=== PATIENT | male | born 1985 | race Caucasian/White ===

== ENCOUNTER 2019-04-28 20:14 | Emergency (ER) | payer SELFPAY ==
[~2019-04-28] VITALS: Ht 180.3 cm; Wt 70.3 kg
--- NOTE | 2019-04-28 20:22 | Emergency Room Report ---
History of Present Illness General Chief Complaint: medical clearance Source: Patient Present Illness HPI Patient is a 33-year-old male brought in by [facility] department for medical clearance. Patient reportedly had been arrested and had [employer] stuck with a needle that had been used by the patient. Patient consented for blood draw. He denies any current complaints. Allergies: Coded Allergies: No Known Allergies (Unverified , 04/28/19) Patient History Past Medical History: see triage record Reviewed Nursing Documentation: PMH: Agreed; PSxH: Agreed Review of Systems All Other Systems: negative except mentioned in HPI Physical Exam General Appearance: well appearing, no apparent distress, alert, GCS 15, non- toxic Head: normocephalic, atraumatic ENT: hearing grossly normal, normal voice Neck: full range of motion, supple Respiratory: no respiratory distress, speaking full sentences Cardiovascular #1: normal inspection Musculoskeletal: no calf tenderness Neurologic: normal gait Psychiatric: mood/affect normal Skin: no rash Medical Decision Making Diagnostic Impression: Primary Impression: Medical clearance for incarceration ER Course Patient present for medical clearance. baseline labs were drawn to [facility] for possible hepatitis or HIV. Patient was noted to be HIV negative. Patient was informed of these results. Patient is medically cleared for booking. He was discharged with [facility] custody.Patient was advised to follow-up with his primary care physician for recheck. He is to return if there is any symptoms that develop. Labs Test 04/28/19 20:39 HIV (1&2) Antibody Rapid Negative (NEGATIVE) Status: improved Disposition: HOME, SELF-CARE Condition: Stable Rober Leigh MD Apr 28, 2019 20:22
[2019-04-28 20:30] VITALS: BP 117/81
--- NOTE | 2019-04-28 20:30 | NUR ---
ED Nurse Note: Pt brought in to ER by [facility] for medical clearance. Per [facility], pt is being checked for blood diseases. No stated medical hx. Alert and oriented, verbally responsive. Breathing even and unlabored. No SOB. Afebrile. VSS. Pt is under custody.
--- NOTE | 2019-04-28 20:40 | NUR ---
ED Nurse Note: Blood sent to lab.
[2019-04-28 21:16] VITALS: BP 117/81
--- NOTE | 2019-04-28 21:16 | NUR ---
ED Nurse Note: Pt cleared by ERMD for discharge. DC instructions was given and explained to pt and verbalized understanding of teachings. All medical deviecs such as ID band removed. Pt is AAO x4, ambulatory and left with all personal belongings. Patient is under custody and is accompanied by [employer] officers.
== END 2019-04-28 21:16 | disposition home or self-care (01) ==
LOC: EMR 20:24
DX: T14.8XXA Other injury of unspecified body region, initial encounter (principal); W46.0XXA Contact with hypodermic needle, initial encounter; Y92.9 Unspecified place or not applicable; Z20.9 Contact with and (suspected) exposure to unspecified communicable disease
CPT/HCPCS: 86703; 86803; 87517; 99283